=== PATIENT | male | born 1960 | race Caucasian/White ===

== ENCOUNTER 2020-02-20 12:37 | Outpatient (CLI) | payer BC, SELFPAY ==
--- NOTE | 2020-02-20 12:45 | MR_ITS ---
WS: [id number] MRI LEFT SHOULDER ARTHROGRAM TECHNIQUE: Sagittal T2, coronal T1, T2 and proton density imaging. Axial gradient PDE imaging. Post a rthrogram images obtained. CLINICAL INFORMATION: LEFT SHOULDER PAIN COMPARISON: None. 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 Moderate downsloping acromion . Subacromial spurring. Slight impingement on the distal supraspinatus. Mild narrowing subacromial sp raegan. Tendinopathy in the distal supraspinous. Supraspinatus and infraspinous are intact. Normal teres minor and subscapularis. No high-grade rotator cuff tear. Normal biceps tendon in the bicipital groove. Intra-articular biceps tendon is normal in appearance. Mild degenerative fraying of the glenoid labrum. Glenoid labrum otherwise unremarkable. Normal biceps labral anchor. Normal bone marrow signal in the humeral head and neck. Cystic degenerative change in volving the greater tuberosity. MR/MR shoulder LT wo/w con [id number] IMPRESSION: 1. 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 Slight impingement on the distal supraspinatus. 2. Mild tendinopathy in the distal supraspinatus. 3. Mild chronic thinning of the supraspinatus distally. Rotator cuff is other brennan normal in appearance. No high-grade tears. 4. Normal biceps tendon in the bicipital groove. Normal biceps labral anchor. 5. Normal glenoid labrum.
--- NOTE | 2020-02-20 13:09 | IR_ITS ---
WS: [id number] SHOULDER ARTHROGRAM LEFT Fluoroscopic guided left shoulder arthrogram CLINICAL INFORMATION: PAIN IN LEFT SHOULDER COMPARISON: None. PROCEDURE: The procedure including risks, benefits and complications were discussed with the patient, who agreed to proceed. Using sterile technique, the patient was prepped and draped in the usual ster ile fashion. After 1% lidocaine injection using fluoroscopic guidance, a 22-gauge spinal needle was a dvanced into the glenohumeral joint. Approximately 13 ml of a solution containing 10 ml normal saline , 5 ml Omnipaque 240, 5 ml 1% lidocaine, and 0.1 ml gadolinium was administered. No immediate complic ations. FLUOROSCOPY TIME: 0.4 minutes. IR/IR arthrogram shoulderLT [id number] IMPRESSION: Uncomplicated fluoroscopic-guided left shoulder arthrogram. MRI to follow.
[2020-02-20] MEDS: iohexol 240 mg/mL 50 mL Btl INTRA-ARTI (14:02)
== END 2020-02-20 12:38 | disposition home or self-care (01) ==
PROVIDERS: PCP Family Medicine; Visit Provider Family Medicine
DX: M19.012 Primary osteoarthritis, left shoulder (principal)
CPT/HCPCS: 23350; 73223; 77002; Q9966

== ENCOUNTER 2021-01-15 15:01 | Outpatient (CLI) | payer BC, SELFPAY ==
--- NOTE | 2021-01-15 15:15 | XR_ITS ---
WS: [id number] UPRIGHT LEFT HIP HISTORY: LEFT HIP PAIN COMPARISON: None available. LEFT hip: No acute fracture or dislocation. Mild narrowing of the hip joint. Osteophyte along the sup erior lateral acetabulum is irregular. Similar changes were seen on a prior CT from 2018. No bone jori truction. Cortex is intact. No soft tissue abnormality. XR/XR hip LT 2-3V wo/w pel* [id number] IMPRESSION: 1. No hip fracture. 2. Mild degenerative joint disease LEFT hip.
== END 2021-01-15 15:02 | disposition home or self-care (01) ==
PROVIDERS: PCP Family Medicine; Visit Provider Nurse Practitioner Family
DX: M25.552 Pain in left hip (principal); M16.12 Unilateral primary osteoarthritis, left hip
CPT/HCPCS: 73502

== ENCOUNTER → 2021-02-11 08:54 | Outpatient (BNVA) | payer BC, SELFPAY | PROVIDERS: PCP Family Medicine; Referring Provider Family Medicine; Visit Provider Specialist | DX: M16.12 Unilateral primary osteoarthritis, left hip (principal) | CPT/HCPCS: 73502 ==

== ENCOUNTER 2021-08-08 08:17 | Observation (INO) | payer SELFPAY ==
[2021-08-08] VITALS (20 sets, daily range): BP systolic 87–172; BP diastolic 64–114; PULSE 65–89; RESP 10–20; TEMP 36.1–37; O2SAT 93–100; BMI 34.2
--- NOTE | 2021-08-08 | SCC_ITS ---
Procedure done: Open reduction internal fixation left both bone forearm fracture 63.9 seconds of fluoroscopic guidance, for a cumulative dose of 1.70 mGy, was provided to Dr. Rosen by the radiology department. C-arm images of the LEFT forearm were saved for the patient's permanent record. [facility]
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
[2021-08-08] MEDS: HYDROmorphone 1 mg/mL INJ 1 mL IVP ×2 (08:51→09:47)
--- NOTE | 2021-08-08 09:28 | ECG_ITS ---
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 Measurements Intervals [place] Rate: 66 P: 42 IL: 220 QRS: 24 QRSD: 89 T: 68 QT: 382 QTc: 401 Interpretive Statements SINUS RHYTHM WITH FIRST DEGREE AV BLOCK Compared to ECG 12/01/2016 17:59:52 First degree AV block now present Sinus tachycardia no longer present Myocardial infarct finding no longer present Electronically Signed On 08-08-2021 22:20:47 CDT by Carly Mortno M.D. [id number]
[2021-08-08] MEDS: CELEcoxib 200 mg Capsule 400 MG PO (09:47)
[2021-08-08 10:25] LABS: Basophils # 0.1 10^3/uL (0.0-0.1); Basophils % 0.7 %; Eosinophils % 0.5 %; Hematocrit 45.7 % (42.0-52.0); Hemoglobin 15.4 g/dL (11.7-16.6); Lymphocytes # 1.7 10^3/uL (0.8-4.8); Lymphocytes % 19.2 %; Mean Corpuscular HGB Conc 33.7 g/dL (30.0-36.0); Mean Corpuscular Hemoglobin 31.2 pg (28.0-34.0); Mean Corpuscular Volume 92.5 fl (80-94); Mean Platelet Volume 9.3 fL (7.4-10.4); Monocytes # 0.8 10^3/uL (0.2-0.9); Monocytes % 9.6 %; Neutrophils # 6.06 10^3/uL (1.8-7.7); Neutrophils % 69.5 %; Nucleated Red Blood Cells % 0 %; Platelet Count 310 10^3/cmm (130-400); Red Blood Count 4.94 10^6/uL (4.1-5.3); Red Cell Distribution Width 12.9 % (12.1-15.1); White Blood Count 8.7 10^3/uL (4.0-10.0)
[2021-08-08 10:48] LABS: Alanine Aminotransferase 30 U/L (0-41); Albumin Level 4.4 g/dL (3.5-5.2); Alkaline Phosphatase 69 IU/L (40-130); Anion Gap 14.4 (5-19); Aspartate Amino Transferase 23 U/L (0-40); Blood Urea Nitrogen 18 mg/dL (8-23); Calcium 9.5 mg/dL (8.5-10.5); Carbon Dioxide 26 mmol/L (22-29); Chloride 102 mmol/L (98-107); Globulin 3.1 g/dL (1.3-4.6); Glomerular Filtration Rate 85.8 mL/min (90-130); Glucose 142 mg/dL (65-115); Osmolality Calculated 290 mOsm/kg (285-295); Potassium 4.4 mmol/L (3.5-5.1); Sodium 138 mmol/L (136-145); Total Bilirubin 0.3 mg/dL (0.15-1.2); Total Protein 7.5 g/dL (6.6-8.7)
[2021-08-08] MEDS: fentaNYL 50 mcg/mL INJ 2mL 100 MCG IVP (11:36)
[2021-08-08] MEDS: oxyCODONE-APAP 10-325 mg Tablet 1 TAB PO ×2 (14:31→17:34)
[2021-08-08] MEDS: acetaminophen 1,000 MG/100 ML PIGGYBACK 400 MG IV ×2 (15:19→20:16)
--- NOTE | 2021-08-08 16:44 | PC.NURSE ---
pain control patient came to the floor, after orders transferred, there was nothing in the MAR for pain. this nurse called dr cardenas to acquire orders to treat patient pain. got a telephone read back order for oxycodone 10-[address] cardenas also instructed this nurse to administer the IV tylenol that was on the MAR to be used in pre op since pt was in pain that was hard to control.
--- NOTE | 2021-08-08 17:43 | PC.NURSE ---
[facility] pain med. spoke with dr cardenas on the phone about pt and his pain level, informed her that it was not due for another hour and the dr ordered it to be given to the patient now. will continue to monitor.
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
[2021-08-08 18:41] LABS: Add Urine Microscopic? NO; Charge for UA Resulting for Rev
--- NOTE | 2021-08-08 18:52 | ANES.PREANE2 ---
Pre-Anesthetic Assessment Height/Weight: Height 1.8 m Weight 111.13 kg Temp Pulse Resp BP Pulse Ox 97.9 F 65 18 170/102 98 08/08/21 15:17 08/08/21 15:17 08/08/21 17:34 08/08/21 15:23 08/08/21 17:34 Preop Diagnosis: Left both bone forearm fracture Operation Date: 08/08/21 19:30 Proposed Procedures p ORIF Wrist(Left) - Gely Rosen MD Familial anesthetic complications: none Was Beta Jeronimo taken within 24 hours: N/A Was Clonidine taken within 24 hours: N/A Last intake: Intake Last Liquid Date 08/07/21 Last Liquid Time 21:00 Last Solid Date 08/07/21 Last Solid Time 19:00 Social No alcohol and No tobacco Exam alert, oriented x 3, clear to auscultation bilaterally and regular rate & rhythm Airway Submandibular: within normal limits Cervical ROM: within normal limits Mallampati: Class III Dentition: full Pulmonary None reported CV/HEM Hypertension None reported Hepatic None reported GI Gastroesophageal Reflux Disease Metabolic None reported Musc/skel Cute left fx Scalp contusion CT Neck 08/08/21 CT/CT cervical spin wo con* [id number] IMPRESSION: ? 1.? No acute cervical spine fracture. 2.? 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 ? Neuropsych None reported CT Head 08/08/21 CT/CT head wo con* [id number] IMPRESSION: ? Negative head CT. ? Anesthetic Plan ASA status: 2 Anesthesia: Anesthesia Evaluation and General Other: We discussed risk and benefits of general anesthesia including PONV, sore throat (sometimes severe), corneal abrasion, positioning and peripheral nerve injuries, life threatening allergic reaction, post operative ICU admission requiring prolonged intubation, stroke, heart attack, , and rare incidences of recall. Patient consents to proceed with general anesthesia. Given complex nature of fx block not offered. Plan GETA with multimodal pain control. Risk of > 500 ml blood loss (7ml/kg in children): No Medications/Allergies Home Medications Medication Instructions Recorded Confirmed Last Taken Type fluticasone propionate 50 1 spray INTRANASAL DAILY 02/11/21 08/08/21 08/08/21 History mcg/actuation nasal spray,suspension omeprazole 20 mg capsule,delayed 20 mg PO DAILY PRN 02/11/21 08/08/21 Unknown History release tizanidine 2 mg capsule 2 mg PO TID PRN 02/11/21 08/08/21 Unknown History atorvastatin 40 mg tablet 40 mg PO DAILY 08/08/21 08/08/21 Unknown History levocetirizine 5 mg tablet (Xyzal) 5 mg PO DAILY 08/08/21 08/08/21 08/08/21 History lisinopril 20 mg tablet 20 mg PO DAILY 08/08/21 08/08/21 08/08/21 History meloxicam 15 mg tablet 15 mg PO DAILY 08/08/21 08/08/21 08/08/21 History povximanupfm-ckh-otvfn acid-vit 1 tab PO DAILY 08/08/21 08/08/21 08/08/21 History K-lycop 400 mcg-20 mcg-370 mcg tablet (Men's 50 Plus Multivitamin) Allergies Allergy/AdvReac Type Severity Reaction Status Date / Time duloxetine Allergy Unknown Verified 08/08/21 11:15 piroxicam [From Feldene] Allergy Unknown Verified 08/08/21 11:15 Current Medications Generic Name Dose Route Start Last Admin Trade Name Freq PRN Reason Stop Dose Admin Oxycodone/Acetaminophen 1 tab 08/08/21 14:14 08/08/21 17:34 Oxycodone-Apap 10-325 Mg Tablet PO 1 tab Q4H PRN Administration MODERATE PAIN PFSH Anesthesia Medical History Hyperlipidemia Hypertension Lateral epicondylitis of elbow Surgical History History of arthroscopy History of lumbar laminectomy Social History Smoking and tobacco status: never smoked Data Anesthesia : 08/08/21 10:15 08/08/21 10:15 Short CBC 08/08/21 Range/Units 10:15 WBC 8.7 (4.0-10.0) 10^3/uL Hgb 15.4 (11.7-16.6) g/dL Hct 45.7 (42.0-52.0) % MCV 92.5 (80-94) fl Plt Count 310 (130-400) 10^3/cmm Neut % (Auto) 69.5 % Neut # (Auto) 6.06 (1.8-7.7) 10^3/uL BMP 08/08/21 10:15 Sodium 138 Potassium 4.4 Chloride 102 Carbon Dioxide 26 BUN 18 Creatinine 0.9 Glucose 142 H Calcium 9.5 Liver Function 08/08/21 Range/Units 10:15 Total Bilirubin 0.3 (0.15-1.2) mg/dL AST 23 (0-40) U/L ALT 30 (0-41) U/L Alkaline Phosphatase 69 (40-130) IU/L Albumin 4.4 (3.5-5.2) g/dL Cardiac Studies: No Data to Display
[2021-08-08 18:54] LABS: Bilirubin Urine Neg (Negative); Blood Urine Neg (Negative); Glucose Urine UA Norm (Normal); Ketones Urine Negative (Negative); Leukocyte Esterase Urine Negative (Negative); Nitrate Urine Negative (Negative); Protein Urine Neg (Negative); Urine Appearance Clear (CLEAR); Urine Color Yellow (Yellow); Urobilinogen Urine Norm (Negative); pH Urine 5 (5-7)
[2021-08-08] MEDS: sodium chloride 0.9% 1,000 ML 30 ML IV (19:08)
[2021-08-08] MEDS: scopolamine 1.5 Patch 1 PATCH TRANSDERMA (19:09)
[2021-08-08] MEDS: magnesium sulfate premix 2 GM/50 ML PIGGYBACK IV (19:35)
[2021-08-08] MEDS: ceFAZolin 1,000 mg SDV 1000 MG IRRIGATION (20:19)
--- NOTE | 2021-08-08 22:39 | XR_ITS ---
WS: [id number] Left forearm, 3 views and C-arm fluoroscopy, 08/08/2021 Clinical Data: OR PICS Comparison: None. Findings: Internal fixation of distal radial ulnar fractures with plate and screws is accomplished XR/XR forearm LT 2V [id number] Impression: Internal fixation of distal left radial and ulnar fractures.
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
[2021-08-09 00:30] VITALS: BP 125/68; PULSE 71; RESP 16; TEMP 36.3; O2SAT 95
[2021-08-09 00:43] VITALS: RESP 14
[2021-08-09] MEDS: oxyCODONE-APAP 10-325 mg Tablet 1 TAB PO (00:43)
[2021-08-09 01:18] VITALS: BP 125/68; PULSE 71; RESP 16; TEMP 36.3; O2SAT 95
--- NOTE | 2021-08-09 01:55 | PC.NURSE ---
Pt discharged home. Pt discharge instructions given pt verbalized understanding. Pts IV removed no redness or swelling noted. Pt had no c/o pain or discomfort at the present time of discharge. Pt transferred out via wheelchair accompanied by nursing staff and pt's .
--- NOTE | 2021-08-09 07:02 | ANE.PACU2 ---
Inpatient post-anesthesia follow up: Airway intact: Yes Vital signs: Temperature 97.4 F Pulse Rate 71 Respiratory Rate 16 Blood Pressure 125/68 Pulse Oximetry 95 Oxygen Delivery Me thod Room Air Oxygen Flow Rate 8 Fraction of Inspir ed Oxygen Hydration adequate: Yes Nausea and vomiting: No Pain level: 4 Mental status: Baseline
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
== END 2021-08-09 01:44 | disposition home or self-care (01) ==
LOC: ER 09:36 → MEDSURG 11:56
PROVIDERS: Admitting Provider Specialist; Emergency Provider Emergency Medicine; PCP Family Medicine; Visit Provider Specialist
PROC: (CPT 25575; principal; 2021-08-08 19:30)
DX: S52.302A Unspecified fracture of shaft of left radius, initial encounter for closed fracture (principal); S52.202A Unspecified fracture of shaft of left ulna, initial encounter for closed fracture; V09.9XXA Pedestrian injured in unspecified transport accident, initial encounter; I10 Essential (primary) hypertension; K21.9 Gastro-esophageal reflux disease without esophagitis; E78.5 Hyperlipidemia, unspecified
CPT/HCPCS: 25575; 70450; 72125; 73090; 76000; 80053; 81003; 85025; 93005; 96365; 96367; 96375; 96376; 99285; C1713; G0378; J0690; J1100; J1170; J2405; J2704; J3010; J3475; J3490; J7030

== ENCOUNTER 2021-08-12 15:56 | Outpatient (CLI) | payer SELFPAY | END 2021-08-12 15:57 | disposition home or self-care (01) | LOC: SPT 15:57 | PROVIDERS: PCP Family Medicine; Visit Provider Specialist | DX: Z98.890 Other specified postprocedural states (principal); S52.92XD Unspecified fracture of left forearm, subsequent encounter for closed fracture with routine healing; X58.XXXD Exposure to other specified factors, subsequent encounter | CPT/HCPCS: 97760; L3982 ==

== ENCOUNTER → 2021-08-25 10:42 | Outpatient (BNVA) | payer OTHER, SELFPAY | PROVIDERS: PCP Family Medicine; Visit Provider Specialist | DX: S52.202D Unspecified fracture of shaft of left ulna, subsequent encounter for closed fracture with routine healing (principal); S52.302D Unspecified fracture of shaft of left radius, subsequent encounter for closed fracture with routine healing; X58.XXXD Exposure to other specified factors, subsequent encounter | CPT/HCPCS: 73090 ==

== ENCOUNTER → 2021-09-22 11:03 | Outpatient (BNVA) | payer OTHER, SELFPAY | PROVIDERS: PCP Family Medicine; Visit Provider Specialist | DX: S52.202D Unspecified fracture of shaft of left ulna, subsequent encounter for closed fracture with routine healing (principal); S52.302D Unspecified fracture of shaft of left radius, subsequent encounter for closed fracture with routine healing; X58.XXXD Exposure to other specified factors, subsequent encounter | CPT/HCPCS: 73090 ==

== ENCOUNTER 2021-10-08 09:28 | Outpatient (CLI) | payer OTHER, SELFPAY ==
--- NOTE | 2021-10-08 10:00 | XR_ITS ---
WS: [id number] Exam: XR forearm LT 2V [id number] Date/Time of Exam: 10/08/2021 10:21 AM Reason For Exam: S52.92XA - Unspecified fracture of left forearm, initial ... Comparison 09/22/2021. Again noted are comminuted fractures of the distal radius and ulna stabilized with plate and screw fi xation. Both fractures remain in good alignment for healing without change. XR/XR forearm LT 2V [id number] IMPRESSION: 1. Comminuted fractures of the distal radius and ulna stabilized in satisfactor y position with internal fixation. No positional change.
== END 2021-10-08 09:29 | disposition home or self-care (01) ==
PROVIDERS: PCP Family Medicine; Visit Provider Specialist
DX: S52.502A Unspecified fracture of the lower end of left radius, initial encounter for closed fracture (principal); S52.602A Unspecified fracture of lower end of left ulna, initial encounter for closed fracture; X58.XXXA Exposure to other specified factors, initial encounter
CPT/HCPCS: 73090

== ENCOUNTER → 2021-10-20 10:40 | Outpatient (BNVA) | payer SELFPAY | PROVIDERS: PCP Family Medicine; Visit Provider Specialist | DX: S52.202A Unspecified fracture of shaft of left ulna, initial encounter for closed fracture (principal); S52.302A Unspecified fracture of shaft of left radius, initial encounter for closed fracture; S52.92XA Unspecified fracture of left forearm, initial encounter for closed fracture; X58.XXXA Exposure to other specified factors, initial encounter | CPT/HCPCS: 73090 ==

== ENCOUNTER → 2021-11-19 08:04 | Outpatient (BNVA) | payer SELFPAY | PROVIDERS: PCP Family Medicine; Visit Provider Specialist | DX: S52.202D Unspecified fracture of shaft of left ulna, subsequent encounter for closed fracture with routine healing (principal); S52.302D Unspecified fracture of shaft of left radius, subsequent encounter for closed fracture with routine healing; X58.XXXD Exposure to other specified factors, subsequent encounter | CPT/HCPCS: 73090 ==